=== PATIENT | female | born 1940 | race Caucasian/White ===

== ENCOUNTER 2019-11-12 07:56 | Day surgery (SDC) | payer MEDICARE, OTHER ==
[~2019-11-12] VITALS: Ht 157.5 cm; Wt 80.4 kg
[2019-11-12 09:07] VITALS: BP 130/86; PULSE 93; TEMP 97.5
[2019-11-12 10:14] VITALS: BP 114/76; PULSE 86; TEMP 97.7
--- NOTE | 2019-11-12 10:14 | NUR ---
Pt returns from OR procedure via cart. Monitors on and alarms set. Pt alert and oriented and dialoging appropriately. Report received from SUMI Lee, and ABIOLA Snyder. Call light within reach. Pt's son brought to discharge room. Dr. Oviedo in to visit with patient and son. Pt states no complaints of pain or nausea and requests juice and crackers.
[2019-11-12] MEDS ORDERED: NORCO 325 MG-51 TAB PO (10:20)
[2019-11-12 10:30] VITALS: BP 127/72; PULSE 85
--- NOTE | 2019-11-12 10:40 | NUR ---
Pt taking food and drink well. No complaints. Son remains in room.
[2019-11-12 10:45] VITALS: BP 128/79; PULSE 84
[2019-11-12 11:00] VITALS: BP 120/73; PULSE 82
--- NOTE | 2019-11-12 11:05 | NUR ---
Discharge instructions given to patient and son. All questions answered to their satisfaction. Handed to them are a thank you card, discharge information, and procedural information.
[2019-11-12 11:15] VITALS: BP 136/64; PULSE 84
--- NOTE | 2019-11-12 11:25 | NUR ---
Pt transferred out of hospital via wheelchair and this RN to waiting private vehicle driven by son.
--- NOTE | 2019-11-12 11:49 | NUR ---
blasting worker met with patient and then with patient and son, Glenn, and provided written and verbal information on advance directives. Patient will take directives home and complete at a later date as patient was medicated.
== END 2019-11-12 11:25 | disposition home or self-care (01) ==
LOC: SDCO 07:56
DX: C56.1 Malignant neoplasm of right ovary (principal); Z82.49 Family history of ischemic heart disease and other diseases of the circulatory system; Z83.3 Family history of diabetes mellitus; Z80.0 Family history of malignant neoplasm of digestive organs; Z80.42 Family history of malignant neoplasm of prostate; Z88.2 Allergy status to sulfonamides
CPT/HCPCS: C1788; J0690; J1644; J2704; J2765; J3010; J7120